=== PATIENT | female | born 1950 | race Two or more races ===

== ENCOUNTER 2018-11-25 07:01 | Inpatient (IN) | payer OTHER ==
[~2018-11-25] VITALS: Ht 160 cm; Wt 112.5 kg
[~2018-11-25 07:01] MED LIST: ASPIR 8181 MG PO; DICLOFENAC POTA50 MG PO; GABAPENTIN100 MG PO; GABAPENTIN300 MG PO; TOPROL XL100 M1 PO; ULTRAM50 MG PO; WARFARIN PO; [UNRECOGNIZED DRUG - OTHER]
[2018-12-14] MEDS ORDERED: ATORVASTA PO (07:39)
[2018-12-22] MEDS ORDERED: COUMADIN1 MG (08:03)
[2018-12-22] MEDS ORDERED: ATORVASTATIN CA10 MG PO (08:04)
[2018-12-22] MEDS ORDERED: WARFARIN SODIUM2 MG PO (08:04)
[2018-12-22] MEDS ORDERED: DICLOFENAC SODI75 MG PO (08:06)
== END 2018-12-24 18:06 | DRG 470 ==
LOC: SURH 12-14 09:00 → SURG 12-22 05:45 → O/R 12-22 05:45 → SURH 12-22 07:00 → SURG 12-22 13:27
PROVIDERS: ADMIT Orthopaedic Surgery
PROC: 0SRD0J9 Replacement of Left Knee Joint with Synthetic Substitute, Cemented, Open Approach (ICD-10-PCS; principal; 2018-12-22 07:00)
DX: M17.12 Unilateral primary osteoarthritis, left knee (principal); I10 Essential (primary) hypertension; E78.49 Other hyperlipidemia; E66.01 Morbid (severe) obesity due to excess calories

== ENCOUNTER 2019-01-04 17:56 | Emergency (ER) | payer OTHER ==
[~2019-01-04] VITALS: Ht 165.1 cm; Wt 112.0 kg
[~2019-01-04 17:56] MED LIST changes: +ATORVASTA PO; +ATORVASTATIN CA10 MG PO; +COUMADIN1 MG; +DICLOFENAC SODI75 MG PO; +WARFARIN SODIUM2 MG PO
== END 2019-01-04 22:49 | disposition home or self-care (01) ==
LOC: ER 17:56
DX: K29.70 Gastritis, unspecified, without bleeding (principal)

== ENCOUNTER 2019-12-08 06:36 | Inpatient (IN) | payer OTHER ==
[~2019-12-08] VITALS: Ht 162.6 cm; Wt 156.5 kg
--- NOTE | 2019-12-08 06:47 | NUR ---
PACIENTE ALERTA Y ORIENTADA EN LAS THEO ESFERAS, LLEGA EN AMBULANCIA PARAMEDICOS INDICAN PACIENTE ACTIVO EL SERVICIO POR DIFICULTAD PARA RESPIRAR. PACIENTE AL MOMENTO SATURACION 97%. SE COLOCA EN AREA DE [place]. RN ARRIETA REALIZA EKG LO PRESENTA A . PACIENTE COLOCADA EN AREA DE [place] CON BARANDAS ELEVADAS Y TIMBRE ACCESIBLE, EN ESPERA DE EVALUACION MEDICA.
[2019-12-08] MEDS ORDERED: ATORVASTATIN CA10 MG (06:51)
[2019-12-08] MEDS ORDERED: CARAFATE1 GM (06:51)
[2019-12-08] MEDS ORDERED: OMEPRAZOLE20 MG (06:52)
[2019-12-08] MEDS ORDERED: TAMS0.4C (06:52)
--- NOTE | 2019-12-08 08:36 | NUR ---
SE RECIBE PTE FEMENINA DE 69 YRS ALERTA,CONCIENTE Y TRANQUILA. SE ACOMODA EN LA UNIDAD DE CHEST PAIN SE CONECTA A MONITOR CARDIACO Y OXIMETRIA. PTE ES EVALUADA POR EL RAJESH GUEVARAIN ORDENA TRATAMIENTO LA CUAL SE EJECURTA POR RN. SE COMIENZA EN MEDICAMENTO DE CARDIACEM 100 MG IN 100 LA A BAJAR A 5 ML HR POR IVPUMM. SE LE REALIZA RX PORTABLE Y SE OBSERVA POR CAMBIOS Y EN RESULTADO DE LA LABORATORIOS.PTE AL MOMENTO MILLICENT DE DOLOR. SE LE CAPO S/V LA CUAL SE DOCUENTA.
== END 2019-12-15 11:56 | disposition home or self-care (01) | DRG 310 ==
LOC: ER 06:36 → ICU-2 13:32 → ICU 13:32 → MEDJ 12-11 20:26 → SURH 12-13 12:50
PROVIDERS: ADMIT Internal Medicine; ATTEND Internal Medicine
PROC: B24BZZZ Ultrasonography of Heart with Aorta (ICD-10-PCS; 2019-12-08)
PROC: 4A12X4Z Monitoring of Cardiac Electrical Activity, External Approach (ICD-10-PCS; principal; 2019-12-11)
PROC: 8E0ZXY6 Isolation (ICD-10-PCS; 2019-12-13)
DX: I48.20 Chronic atrial fibrillation, unspecified (principal); E66.01 Morbid (severe) obesity due to excess calories; Z79.01 Long term (current) use of anticoagulants; Z20.828 Contact with and (suspected) exposure to other viral communicable diseases

== ENCOUNTER 2020-02-28 15:49 | Inpatient (IN) | payer OTHER ==
[~2020-02-28] VITALS: Ht 160 cm; Wt 140.6 kg
[~2020-02-28 15:49] MED LIST changes: +ATORVASTATIN CA10 MG; +CARAFATE1 GM; +OMEPRAZOLE20 MG; +TAMS0.4C
[2020-02-28] MEDS ORDERED: FLAGYL500MG (16:01)
== END 2020-03-03 13:26 | disposition home or self-care (01) | DRG 378 ==
LOC: ER 15:49 → ICU-2 02-29 06:30 → MEDI 03-02 11:45
PROVIDERS: ADMIT Internal Medicine; ATTEND Internal Medicine
PROC: BW21ZZZ Computerized Tomography (CT Scan) of Abdomen and Pelvis (ICD-10-PCS; principal; 2020-02-28)
PROC: 4A12X4Z Monitoring of Cardiac Electrical Activity, External Approach (ICD-10-PCS; 2020-03-02)
DX: K62.5 Hemorrhage of anus and rectum (principal); D62 Acute posthemorrhagic anemia; T45.515A Adverse effect of anticoagulants, initial encounter; I10 Essential (primary) hypertension; I48.91 Unspecified atrial fibrillation; E66.01 Morbid (severe) obesity due to excess calories; E78.5 Hyperlipidemia, unspecified; G62.89 Other specified polyneuropathies; K29.70 Gastritis, unspecified, without bleeding; M19.079 Primary osteoarthritis, unspecified ankle and foot; Z79.01 Long term (current) use of anticoagulants; Z96.653 Presence of artificial knee joint, bilateral; Z20.828 Contact with and (suspected) exposure to other viral communicable diseases

== ENCOUNTER 2022-01-10 07:57 | Outpatient (CLI) | payer OTHER ==
[~2022-01-10 07:57] MED LIST changes: +FLAGYL500MG
== END 2022-01-10 07:58 | disposition home or self-care (01) ==
LOC: NUCLEAR 07:57
PROVIDERS: ATTEND Internal Medicine Cardiovascular Disease
DX: I20.1 Angina pectoris with documented spasm (principal)
CPT/HCPCS: 78452; 93017; A9500; J0153